=== PATIENT | male | born 2000 ===

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

== ENCOUNTER 2018-09-20 14:09 | Emergency (ER) | payer MEDICAID ==
[2018-09-20 14:09] VITALS: BMI 23.3
[2018-09-20 14:19] VITALS: BP 121/69; PULSE 73; RESP 18; TEMP 97.9; O2SAT 99
--- NOTE | 2018-09-20 14:22 | C.PDOC ---
History Of Present Illness 18 yr old male w/ hx of appendectomy p/w penile discharge and dysuria. Pt notes unprotected sex 3d prior followed by onset of penile discharge 2d prior and dysuria. He notes similar occurrence previously which resolved after getting antibiotics for STD. He denies any known hx of STD however- he notes never being informed of STD. He denies any testicular pain or flank pain. No abdominal pain or suprapubic pain. No back pain. No rash or ulcers noted. No swelling. No fever, chills or nigth sweats No other complaints. Chief Complaint (Nursing): Male Genitourinary Past Medical History Vital Signs: Last Vital Signs Temp 97.9 F 09/20/18 14:17 Pulse 73 09/20/18 14:17 Resp 18 09/20/18 14:17 BP 121/69 09/20/18 14:17 Pulse Ox 99 09/20/18 14:17 Surgical History: Appendectomy - [facility] Procedures LAPAROSCOP APPENDECTOMY (04/29/13) PERCUTANEOUS ABDOMINAL DRAINAGE (04/29/13) Family History: States: Unknown Family Hx - Social History Hx Tobacco Use: No Hx Alcohol Use: No Hx Substance Use: No - Immunization History Hx Tetanus Toxoid Vaccination: Yes Hx Influenza Vaccination: Yes Hx Pneumococcal Vaccination: Yes Review Of Systems Constitutional: Negative for: Fever, Chills, Sweats, Weakness, Malaise, Weight loss Eyes: Negative for: Pain, Vision Change, Conjunctivae Inflammation, Eyelid Inflammation, Redness ENT: Negative for: Ear Pain, Ear Discharge, Nose Pain, Nose Discharge, Nose Congestion, Mouth Pain, Mouth Swelling Cardiovascular: Negative for: Chest Pain, Palpitations, Orthopnea, Paroxysmal Noc. Dyspnea, Edema Respiratory: Negative for: Cough, Shortness of Breath Gastrointestinal: Negative for: Nausea, Vomiting, Abdominal Pain, Diarrhea, Constipation, Melena, Hematochezia Genitourinary: Positive for: Dysuria, Penile Discharge. Negative for: Frequency, Incontinence, Hematuria, Scrotal Pain, Rash, Penile Pain Musculoskeletal: Negative for: Neck Pain, Shoulder Pain, Arm Pain, Back Pain, Hand Pain, Leg Pain Skin: Negative for: Rash, Lesions, Jaundice Neurological: Negative for: Weakness, Numbness, Incoordination, Headache Psych: Negative for: Anxiety, Depression Physical Exam - Physical Exam Appears: Well, Non-toxic, No Acute Distress Skin: Normal Color, Warm, Dry, No Pale, No Rash, No Jaundice Head: Atraumatic, Normacephalic Eye(s): bilateral: Normal Inspection, PERRL, EOMI Ear(s): Bilateral: Normal Nose: Normal Oral Mucosa: Moist Tongue: Normal Appearing Lips: Normal Appearing Teeth: Normal Dentition Gingiva: Normal Appearing Throat: Normal, No Erythema, No Exudate, No Drooling Neck: Normal, Normal ROM, Supple, Other (no meningeal signs) Lymphatic: Normal Exam, No Adenopathy Chest: Symmetrical Cardiovascular: Rhythm Regular, No Edema, No Friction Rub, No Murmur, No JVD Respiratory: Normal Breath Sounds Gastrointestinal/Abdominal: Normal Exam, Soft, No Tenderness, No Organomegaly, No Mass, No Distention, No Guarding Back: Normal Inspection, No CVA Tenderness, No Vertebral Tenderness, No Decreased ROM, No Muscle Spasm, No Paraspinal Tenderness Male Genital: No Testicular Tenderness, No Testicular Swelling, No Inguinal Tenderness, No Inguinal Swelling, No Scrotal Swelling, No Circumcised, Other (yellowish penile d/c, no ulcers noted or lymphadenopathy ) Extremity: Normal ROM, No Tenderness Extremity: Bilateral: Atraumatic, Normal ROM Neurological/Psych: Oriented x3, Normal Speech, Normal Cognition, Normal Motor Gait: Steady ED Course And Treatment O2 Sat by Pulse Oximetry: 99 Medical Decision Making Medical Decision Makin yr old male p/w dysuria, penile discharge concerning for STD. No ulcers noted. Likely chlaymdia vs gonorrhea. No lymphadenopathy. Pt would not like HIV testing. No abdominal pain or testicular pain. 1512 endorsed to pt to inform partner regarding likely +STD and need to get tested also stressed the importance of safe sex and using condoms. He notes understanding pt in NAD Given Zpack and IM Rocephin for G/C coverage Disposition - Disposition Referrals: [facility] [Outside] [facility] [Outside] [facility] [Outside] Raghu Pena MD [Staff Provider] - Disposition: HOSPITALIZED Disposition Time: 16:09 Condition: GOOD Additional Instructions: USE CONDOMS WHEN HAVING SEX JOSE DE SANTIAGO, thank you for letting us take care of you today. Your provider was Joaquin Loyola and you were treated for URINARY PROBLEM. The emergency medical care you received today was directed at your acute symptoms. If you were prescribed any medication, please fill it and take as directed. It may take several days for your symptoms to resolve. Return to the Emergency Department if your symptoms worsen, do not improve, or if you have any other problems. Please contact your doctor or call one of the physicians/clinics you have been referred to that are listed on the Patient Visit Information form that is included in your discharge packet. Bring any paperwork you were given at discharge with you along with any medications you are taking to your follow up visit. Our treatment cannot replace ongoing medical care by a primary care provider outside of the emergency department. Thank you for allowing the [facility] team to be part of your care today. If you had an X-Ray or CT scan: A Radiologist will review the ED reading if any change in treatment is needed we will contact you. If you had a blood, urine, or wound culture: It will take several days for the results, if any change in treatment is needed we will contact you. If you had an STI test: It will take 48 hours for the results. Please call after 1 week if you have not heard back. Instructions: Screening for Sexually Transmitted Infections Forms: [facility] (Slovenian) - Clinical Impression Clinical Impression: Abnormal penile discharge, Screening for STD (sexually transmitted disease)
[2018-09-20] MEDS ORDERED: cefTRIAXone (Rocephin) 250 mg Inj IM STA (14:58)
[2018-09-20 15:46] LABS: SQUAMOUS EPITHIAL < 1 /hpf (0-5); URINE BILIRUBIN NEGATIVE (NEGATIVE); URINE BLOOD NEGATIVE (NEGATIVE); URINE CLARITY Clear (Clear); URINE COLOR Straw (YELLOW); URINE GLUCOSE (UA) NORMAL (Normal); URINE LEUKOCYTE ESTERASE 2+ Leu/uL (Negative); URINE PROTEIN NEGATIVE (NEGATIVE); URINE UROBILINOGEN NORMAL mg/dL (0.2-1.0)
== END 2018-09-20 16:15 | disposition home or self-care (01) ==
LOC: C.ER 14:09
DX: Z11.3 Encounter for screening for infections with a predominantly sexual mode of transmission (principal); R36.9 Urethral discharge, unspecified
CPT/HCPCS: 81001; 87491; 87591; 96372; 99283; J0696